=== PATIENT | female | born 1955 | race Caucasian/White ===

== ENCOUNTER → 2019-11-25 08:11 | Outpatient (BNVA) | payer OTHER, SELFPAY | PROVIDERS: Visit Provider Nurse Practitioner Gerontology | DX: Z76.89 Persons encountering health services in other specified circumstances (principal) ==

== ENCOUNTER 2019-12-02 08:05 | Outpatient (REF) | payer OTHER, SELFPAY ==
--- NOTE | 2019-12-02 08:10 | XR_ITS ---
EXAMINATION: KNEE X-RAY CLINICAL INFORMATION: Right tibia fracture COMPARISON: Previous CT of the right knee 10/24/2019 TECHNIQUE: AP view of both knees and lateral and sunrise view of the right knee FINDINGS: Right knee: Bone alignment is normal. There is a increased sclerosis of the lateral tibial plateau suggestive of healing fracture. The joint spaces are normal. There is a joint effusion. Standing AP view of the left knee is unremarkable. XR/XR knee standing BI IMPRESSION: Healing right lateral tibial plateau fracture.
--- NOTE | 2019-12-02 08:10 | XR_ITS ---
EXAMINATION: KNEE X-RAY CLINICAL INFORMATION: Right tibia fracture COMPARISON: Previous CT of the right knee 10/24/2019 TECHNIQUE: AP view of both knees and lateral and sunrise view of the right knee FINDINGS: Right knee: Bone alignment is normal. There is a increased sclerosis of the lateral tibial plateau suggestive of healing fracture. The joint spaces are normal. There is a joint effusion. Standing AP view of the left knee is unremarkable. XR/XR knee RT 2V IMPRESSION: Healing right lateral tibial plateau fracture.
== END 2019-12-02 08:06 | disposition home or self-care (01) ==
LOC: HO.XRAY 08:05
PROVIDERS: Visit Provider Orthopaedic Surgery
DX: S82.141A Displaced bicondylar fracture of right tibia, initial encounter for closed fracture (principal)
CPT/HCPCS: 73560; 73565

== ENCOUNTER 2020-01-13 08:42 | Outpatient (REF) | payer OTHER, SELFPAY ==
--- NOTE | 2020-01-13 08:44 | XR_ITS ---
EXAMINATION: AP BILATERAL KNEE AND RIGHT KNEE 2 VIEWS CLINICAL INFORMATION: Bilateral knee pain. COMPARISON: Bilateral knee and right knee 12/02/2019 TECHNIQUE: AP bilateral knees standing. Right knee 2 views FINDINGS: AP bilateral knee: There is decreased medial compartment joint space in both knees. There is a mild deformity and sclerosis involving right tibial plateau likely old healed fracture. Right knee: Lateral and sunrise views reveal mild peripatellar spurring. No loss of joint space or bony erosive changes. Mild decrease in suprapatellar joint effusion since 10/18/2019.. XR/XR knee standing BI IMPRESSION: Mild deformity right lateral tibial plateau from old healing fracture. No acute fracture or dislocation identified knees. Mild degenerative changes as seen in the medial compartment of both knees.
--- NOTE | 2020-01-13 08:44 | XR_ITS ---
EXAMINATION: AP BILATERAL KNEE AND RIGHT KNEE 2 VIEWS CLINICAL INFORMATION: Bilateral knee pain. COMPARISON: Bilateral knee and right knee 12/02/2019 TECHNIQUE: AP bilateral knees standing. Right knee 2 views FINDINGS: AP bilateral knee: There is decreased medial compartment joint space in both knees. There is a mild deformity and sclerosis involving right tibial plateau likely old healed fracture. Right knee: Lateral and sunrise views reveal mild peripatellar spurring. No loss of joint space or bony erosive changes. Mild decrease in suprapatellar joint effusion since 10/18/2019.. XR/XR knee RT 2V IMPRESSION: Mild deformity right lateral tibial plateau from old healing fracture. No acute fracture or dislocation identified knees. Mild degenerative changes as seen in the medial compartment of both knees.
== END 2020-01-13 08:43 | disposition home or self-care (01) ==
LOC: HO.HOSX 08:42
PROVIDERS: Visit Provider Orthopaedic Surgery
DX: S82.141A Displaced bicondylar fracture of right tibia, initial encounter for closed fracture (principal); M25.569 Pain in unspecified knee
CPT/HCPCS: 73560; 73565

== ENCOUNTER 2020-02-15 07:25 | Outpatient (REF) | payer OTHER, SELFPAY ==
[2020-02-15 08:31] LABS: Alanine Aminotransferase 16 U/L (0-31); Alkaline Phosphatase 92 U/L (39-117); Anion Gap 12 (12-20); Aspartate Amino Transferase 16 U/L (5-31); Bilirubin Total 1.6 mg/dL (0.0-1.0); Blood Urea Nitrogen 20 mg/dL (9-16); Calcium 9.3 mg/dL (8.4-10.2); Carbon Dioxide 32 mmol/L (22-29); Chloride 101 mmol/L (96-108); Cholesterol 156 mg/dL; Estimated Glomerular Filt Rate 51; Glucose Fasting 81 mg/dL (60-99); HDL Cholesterol 71 mg/dL; LDL Cholesterol Calculated 73 mg/dl; Potassium 4.4 mmol/l (3.3-5.1); Sodium 141 mmol/L (135-145); Total Protein 6.7 g/dL (6.5-8.0); Triglycerides 63 mg/dL
[2020-02-15 08:42] LABS: Creatinine Urine 14.34 mg/dL
[2020-02-15 09:04] LABS: Estimated Average Glucose 148 mg/dL; Hemoglobin A1c % 6.8 %
[2020-02-16 03:48] LABS: LDL Cholesterol Direct 68 mg/dL (<100)
== END 2020-02-15 07:26 | disposition home or self-care (01) ==
LOC: HO.LAB 07:25
PROVIDERS: Visit Provider Nurse Practitioner Gerontology
DX: E10.65 Type 1 diabetes mellitus with hyperglycemia (principal)
CPT/HCPCS: 36415; 80053; 80061; 82043; 83036; 83721

== ENCOUNTER → 2020-02-26 10:54 | Outpatient (BNVA) | payer OTHER, SELFPAY | PROVIDERS: Visit Provider Nurse Practitioner Gerontology ==

== ENCOUNTER → 2020-04-06 14:50 | Outpatient (BNVA) | payer OTHER, SELFPAY | PROVIDERS: Visit Provider Nurse Practitioner Gerontology | DX: E10.21 Type 1 diabetes mellitus with diabetic nephropathy (principal); E10.65 Type 1 diabetes mellitus with hyperglycemia; I10 Essential (primary) hypertension; E78.5 Hyperlipidemia, unspecified; E55.9 Vitamin D deficiency, unspecified | CPT/HCPCS: 82947 ==

== ENCOUNTER → 2020-07-15 14:59 | Outpatient (BNVA) | payer OTHER, SELFPAY | PROVIDERS: Visit Provider Nurse Practitioner Gerontology ==

== ENCOUNTER 2020-11-05 06:09 | Outpatient (REF) | payer OTHER, SELFPAY ==
[2020-11-05 08:27] LABS: Estimated Average Glucose 143 mg/dL; Hemoglobin A1c % 6.6 %
== END 2020-11-05 06:10 | disposition home or self-care (01) ==
LOC: HO.LAB 06:09
PROVIDERS: Visit Provider Nurse Practitioner Gerontology
DX: E10.21 Type 1 diabetes mellitus with diabetic nephropathy (principal)
CPT/HCPCS: 36415; 83036

== ENCOUNTER → 2020-11-11 14:27 | Outpatient (BNVA) | payer OTHER, SELFPAY | PROVIDERS: Visit Provider Nurse Practitioner Gerontology | DX: E10.21 Type 1 diabetes mellitus with diabetic nephropathy (principal); E10.65 Type 1 diabetes mellitus with hyperglycemia; E78.5 Hyperlipidemia, unspecified; E55.9 Vitamin D deficiency, unspecified; I10 Essential (primary) hypertension | CPT/HCPCS: 82947 ==

== ENCOUNTER 2021-06-10 06:06 | Outpatient (REF) | payer OTHER, SELFPAY ==
[2021-06-10 07:27] LABS: Alanine Aminotransferase 20 U/L (0-31); Albumin Level 3.8 g/dL (3.5-5.0); Alkaline Phosphatase 74 U/L (39-117); Anion Gap 13 (12-20); Aspartate Amino Transferase 18 U/L (5-31); Bilirubin Total 1.5 mg/dL (0.0-1.0); Blood Urea Nitrogen 27 mg/dL (9-16); Calcium 9.6 mg/dL (8.4-10.2); Carbon Dioxide 26 mmol/L (22-29); Chloride 105 mmol/L (96-108); Cholesterol 138 mg/dL; Estimated Glomerular Filt Rate 42; Glucose Fasting 190 mg/dL (60-99); HDL Cholesterol 56 mg/dL; LDL Cholesterol Calculated 71 mg/dl; Potassium 4.9 mmol/L (3.3-5.1); Sodium 139 mmol/L (135-145); Total Protein 6.7 g/dL (6.5-8.0); Triglycerides 57 mg/dL
[2021-06-10 07:50] LABS: Thyroid Stimulating Hormone 3.79 uIU/mL (0.32-4.0); Vitamin D 25-OH Total 30.8 ng/mL (>30)
[2021-06-10 09:01] LABS: Creatinine Urine 28.11 mg/dL; Microalbum/Creatinine Ratio Ur 1262.8 ug/mg cr
[2021-06-12 02:32] LABS: LDL Cholesterol Direct 63 mg/dL (<100)
== END 2021-06-10 06:07 | disposition home or self-care (01) ==
LOC: HO.LAB 06:06
PROVIDERS: Visit Provider Nurse Practitioner Gerontology
DX: E10.21 Type 1 diabetes mellitus with diabetic nephropathy (principal); E55.9 Vitamin D deficiency, unspecified
CPT/HCPCS: 36415; 80053; 80061; 82043; 82306; 83721; 84443

== ENCOUNTER → 2021-12-08 14:51 | Outpatient (BNVA) | payer OTHER, SELFPAY | PROVIDERS: Visit Provider Internal Medicine Endocrinology, Diabetes & Metabolism | DX: E10.21 Type 1 diabetes mellitus with diabetic nephropathy (principal) | CPT/HCPCS: 82947; 83036 ==

== ENCOUNTER → 2022-03-10 15:19 | Outpatient (BNVA) | payer OTHER, SELFPAY | PROVIDERS: Visit Provider Internal Medicine Endocrinology, Diabetes & Metabolism | DX: E10.21 Type 1 diabetes mellitus with diabetic nephropathy (principal) | CPT/HCPCS: 82947; 83036 ==

== ENCOUNTER → 2022-06-16 15:25 | Outpatient (BNVA) | payer OTHER, SELFPAY | PROVIDERS: Visit Provider Internal Medicine Endocrinology, Diabetes & Metabolism | DX: E10.21 Type 1 diabetes mellitus with diabetic nephropathy (principal); E10.65 Type 1 diabetes mellitus with hyperglycemia; Z96.41 Presence of insulin pump (external) (internal); Z79.4 Long term (current) use of insulin | CPT/HCPCS: 82947; 83036 ==

== ENCOUNTER 2022-09-20 14:48 | Outpatient (AMB) | payer OTHER, SELFPAY ==
--- NOTE | 2022-09-20 15:33 | A.OFFVIS_ITS ---
Intake Intake Visit Reasons: DM Information Technology Audit Manager Required: No Accompanied by: Self / Same As Patient Allergies cephalexin [From KEFLEX] Allergy (Unknown, Verified 03/10/22 15:27) HIVES Penicillins [PENICILLINS] Allergy (Unknown, Verified 03/10/22 15:27) HIVES penicillin of all kinds Allergy (Intermediate, Uncoded 03/10/22 15:27) Hives HPI Comprehensive Diabetes Asmnt Most Recent Diabetes Results: Microalb/Creat Ratio 1262.8 ug/mg cr 06/10/21 Cholesterol 138 mg/dL 06/10/21 HDL Cholesterol 56 mg/dL 06/10/21 Triglycerides 57 mg/dL 06/10/21 Creatinine 1.29 mg/dL (0.5-1.4) 06/10/21 Blood Urea Nitrogen 27 mg/dL (9-16) H 06/10/21 Sodium 139 mmol/L (135-145) 06/10/21 Potassium 4.9 mmol/L (3.3-5.1) 06/10/21 Chloride 105 mmol/L (96-108) 06/10/21 Carbon Dioxide 26 mmol/L (22-29) 06/10/21 Calcium 9.6 mg/dL (8.4-10.2) 06/10/21 AST 18 U/L (5-31) 06/10/21 ALT 20 U/L (0-31) 06/10/21 Total Protein 6.7 g/dL (6.5-8.0) 06/10/21 Albumin 3.8 g/dL (3.5-5.0) 06/10/21 [facility] Medical History Diabetes mellitus type 1, uncontrolled Essential hypertension Fracture of right tibial plateau Hx of cataract Hyperlipidemia LDL goal <100 Type 1 diabetes mellitus with nephropathy Vitamin D deficiency Surgical History Hx of cataract surgery Family History Father Total knee replacement status Mother Diabetes mellitus Social History Household Members: Spouse Alcohol intake: current Patient Tobacco Use Status: Never used Tobacco Current occupational status: employed 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 Patient currently using 670 G insulin pump with Dexcom G7 sensor Patient did not want to download Dexcom clarity estefani because she is switching over to Noah 3 sensors Patient did not give pump to front desk associate for download so unable to review pump data at this visit Patient feels confident when she gets new pump that she can Program settings herself. Copy of patient's current insulin pump settings given Patient contact wellness educator with questions The following topics were reviewed today: -Pump therapy basic concepts: Basal/bolus, insulin to carb ratio, correction factor, insulin on board -Device settings: Bluetooth/mobile connection (if applicable), correct date and time, sound volume -CGM settings(if integrated system): CGM graft views and trend arrows, alerts and alarms, Start new sensor Insulin delivery settings Program insulin to carb ratio, correction factor, target blood glucose, suspend or resume insulin delivery, bolus limit and basal limit settings Instructed patient to only use room temperature insulin, how to load cartridge or fill pod, with insulin. Fill tubing and cannula (if applicable) Inserting infusion set or starting pod Troubleshooting after starting new pod or inserting new insulin set: Occlusion, adhesive tape sensitivity, redness Check BG 2 hours after site change Safety information: Importance of a backup plan, for manual injections, proper prescriptions and emergency supplies ketone strips, and rules for testing for ketones Patient was able to insert insulin set today without difficulty. Patient understands the basic concepts of pump therapy, how to give insulin for meals and snacks, how to troubleshoot for hyper and hypoglycemia. Patient will follow up with CDE as instructed Patient will contact CDE with questions or concerns, patient given IT number to support in any technical issues related to insulin pump Coding Level of Care Code Est Pt Level 1 (19912) Diagnoses Diabetes mellitus type 1, uncontrolled E10.65 Glycemic state: with hyperglycemia
== END 2022-09-20 15:39 | disposition home or self-care (01) ==
PROVIDERS: Visit Provider Registered Nurse Diabetes Educator
DX: E10.65 Type 1 diabetes mellitus with hyperglycemia (principal)
CPT/HCPCS: 99211

== ENCOUNTER → 2022-09-20 14:48 | Outpatient (BNVA) | payer OTHER, SELFPAY | PROVIDERS: Visit Provider Registered Nurse Diabetes Educator ==

== ENCOUNTER → 2023-03-30 14:46 | Outpatient (BNVA) | payer OTHER, SELFPAY | PROVIDERS: Visit Provider Internal Medicine Endocrinology, Diabetes & Metabolism | DX: E10.21 Type 1 diabetes mellitus with diabetic nephropathy (principal); Z96.41 Presence of insulin pump (external) (internal) | CPT/HCPCS: 82947; 83036 ==

== ENCOUNTER 2023-06-26 06:07 | Outpatient (REF) | payer OTHER, SELFPAY ==
[2023-06-26 08:13] LABS: Anion Gap 14 (12-20); Blood Urea Nitrogen 27 mg/dL (9-16); Calcium 9.4 mg/dL (8.4-10.2); Carbon Dioxide 27 mmol/L (22-29); Chloride 105 mmol/L (96-108); Cholesterol 158 mg/dL (<200); Estimated Glomerular Filt Rate 44; Glucose Random 105 mg/dL (60-115); HDL Cholesterol 68 mg/dL (>40); LDL Cholesterol Calculated 79 mg/dL (<100); Potassium 3.9 mmol/L (3.3-5.1); Sodium 142 mmol/L (135-145); Triglycerides 59 mg/dL (<150)
[2023-06-26 08:15] LABS: Creatinine Urine 34.02 mg/dL; Microalbum/Creatinine Ratio Ur 1119.9 ug/mg cr (<30)
== END 2023-06-26 06:08 | disposition home or self-care (01) ==
LOC: HO.LAB 06:07
PROVIDERS: Visit Provider Internal Medicine Endocrinology, Diabetes & Metabolism
DX: E10.21 Type 1 diabetes mellitus with diabetic nephropathy (principal)
CPT/HCPCS: 36415; 80048; 80061; 82043; 82570

== ENCOUNTER 2023-06-29 14:20 | Outpatient (AMB) | payer OTHER, SELFPAY ==
[2023-06-29 14:25] VITALS: BP 188/86; PULSE 81; BMI 27.8
--- NOTE | 2023-06-29 14:25 | MHC.OFFVIS ---
Vital Signs 06/29/23 14:25 Height 5 ft 2 in Weight 152 lb 1.903 oz BMI 27.8 BP 188/86 H Blood Pressure Location Lt brachial Position Sitting Pulse 81 Pulse Source Pulse Oximeter Intake Visit Reasons: DM-confirmed Intake Note: Patient presents today to follow up on D1MT. Last Diabetic Eye exam: 2021 Last Podiatry Visit: Doesn't have one Random Glucose: 168 mg/dl HgA1c: 6.1% Purchasing Administrator Required: No Accompanied by: Self / Same As Patient Allergies cephalexin [From KEFLEX] Allergy (Unknown, Verified 06/29/23 14:32) HIVES Penicillins [PENICILLINS] Allergy (Unknown, Verified 06/29/23 14:32) HIVES penicillin of all kinds Allergy (Intermediate, Uncoded 06/29/23 14:32) Hives HPI Comments Details: Patient is 67 yo female diagnosed with diabetes type 1 diagnosed at age 12 here for continued management of diabetes. . . Patient doesn't uses CGM because feels it is quite uncomfortable. Sometimes boluses after meals. PMH: DM1, HTN, HLD, Vit D deficiency Complications: nephropathy Symptoms: Denies numbness, tingling and cramping in lower extremeties Hypoglycemia: Very infrequently REports symptoms of not thinking well. No shakiness or sweatiness. Hyperglycemia: denies polyuria Exercise: only walks at work and doing errands. Eye exam: needs to make appt Blood sugars: Has Noah- download shows 69% TIR 25% hyperglycemia and 6 % hypoglycemia Do ing fingersticks 2 to 3 times a day and entering into the pump Average blood glucose,169 Total daily dose 36 units Bolus 53% Basal 47% Set change 6.5 days [place] change every 6.5 days Average carbs/day. Modanisa Med 670 G pump SETTINGS :97% manual TDD of 37.3 52 % basal and 48% bolus Basal rates Start time - units/hr 00:00 - 0.750 600 0.975 08:00 - 0.85 11:00 - 0.975 1400 0.6 17:00 - 0.975 1900 0.725 21 0.725 Carb ratio 00:00 11 09:00 11 15:00 11 Sensitivity 00:00 45 09:00 45 15:00 45 target 100-120. 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 Physical Exam Vital Signs: Last Vital Signs Pulse 81 06/29/23 14:25 BP 188/86 H 06/29/23 14:25 BMI result Body Mass Index 27.8 Results AMB Hemoglobin A1c AMB Hemoglobin A1c 6.1 % Last Edit by ABIGAIL Koch on 06/29/23 14:47 Results Reviewed Results Reviewed: Laboratory Last Values Glucose (Clinic) 168 mg/dL (60-115) H 06/29/23 14:34 Hgb A1c (Clinic) 6.1 % (4.0-6.0) H 06/29/23 14:46 Assessment & Plan Assessment & Plan (1) Type 1 diabetes mellitus with nephropathy: Code(s): E10.21 - Type 1 diabetes mellitus with diabetic nephropathy Category: Medical Plan: This 66-year-old white female with a history of type 1 diabetes being treated with a Medtronic pump with excellent glycemic control and known microvascular complications namely CKD and macro albuminuria. She is having significant hypoglycemia occurring in the dot compliance specialist hours and after breakfast and dinner Plan is to lower the basal rate at 00:00 to 0.7 u/hr and at 6 AM to 0.9 u/hr and loosen the insulin: Carbohydrate to 01:12. Patient will make these changes to the pump after the appointment. I offered her a follow-up appointment with the asthma educator but she declined Orders: Orders AMB Hemoglobin A1c Today E10.21 - Type 1 diabetes mellitus with diabetic nephropathy, Z13.9 - Encounter for screening, unspecified Coding Level of Care Code Est Pt Level 4 (11369) Diagnoses Type 1 diabetes mellitus with nephropathy E10.21
[2023-06-29 14:39] LABS: Glucose, Whole Blood 168 mg/dL (60-115)
== END 2023-06-29 15:12 | disposition home or self-care (01) ==
PROVIDERS: Visit Provider Internal Medicine Endocrinology, Diabetes & Metabolism
DX: Z13.9 Encounter for screening, unspecified (principal); E10.21 Type 1 diabetes mellitus with diabetic nephropathy
CPT/HCPCS: 99214

== ENCOUNTER → 2023-06-29 14:20 | Outpatient (BNVA) | payer OTHER, SELFPAY | PROVIDERS: Visit Provider Internal Medicine Endocrinology, Diabetes & Metabolism | DX: E10.21 Type 1 diabetes mellitus with diabetic nephropathy (principal); Z96.41 Presence of insulin pump (external) (internal) | CPT/HCPCS: 82947; 83036 ==

== ENCOUNTER 2023-09-28 14:42 | Outpatient (AMB) | payer MEDICARE, SELFPAY ==
--- NOTE | 2023-09-28 14:51 | A.OFFVIS_ITS ---
Vital Signs 09/28/23 15:00 Height 5 ft 2 in Weight 154 lb 5.177 oz BMI 28.2 BP 150/72 H Blood Pressure Location Rt brachial Position Sitting Pulse 80 Pulse Source Pulse Oximeter Intake Visit Reasons: T1DM Intake Note: Patient present today to follow up on Type 1 Diabetes Mellitus. Last Diabetic Eye exam: Due for exam Last Podiatry Visit: Does not see a Structural Steel Worker Random Glucose: 123 mg/dl HgA1C: 6.8% Before And After School Daycare Worker Required: No Accompanied by: Self / Same As Patient Allergies cephalexin [From KEFLEX] Allergy (Unknown, Verified 09/28/23 15:04) HIVES Penicillins [PENICILLINS] Allergy (Unknown, Verified 09/28/23 15:04) HIVES penicillin of all kinds Allergy (Intermediate, Uncoded 09/28/23 15:04) Hives Medication List - Last Reconciled 09/28/23 by John Her MD blood sugar diagnostic (Contour Next Test Strips) As directed 6 times a day blood-glucose meter (Contour Next Meter) As directed blood-glucose meter (Contour Next One Meter) As directed checks 4 X/day blood-glucose sensor ([employer] Noah 3 Sensor device) USE DIRECTED; CHANGE SENSOR EVERY 14 DAYS cholecalciferol (vitamin D3) 50 mcg PO DAILY glucagon 3 mg/actuation (Baqsimi) 3 mg intranasal ONCE 30 days infusion set for insulin pump (Medtronic Extended Infusion Set 23 ) As directed change every 72 hrs insulin lispro (Humalog U-100 Insulin) 60 units (0.6 mL) subcut DAILY Lipitor (atorvastatin) 80 mg PO DAILY NS losartan 50 mg PO DAILY [Medtronic Extended [place] 3.0 ml (MMT-342) Use one every 7 days] Zetia (ezetimibe) 10 mg PO DAILY NS HPI Comments Details: Patient is 67 yo female diagnosed with diabetes type 1 diagnosed at age 12 here for continued management of diabetes. . . Patient doesn't uses CGM because feels it is quite uncomfortable. Sometimes boluses after meals. PMH: DM1, HTN, HLD, Vit D deficiency Complications: nephropathy Symptoms: Denies numbness, tingling and cramping in lower extremeties Hypoglycemia: Very infrequently REports symptoms of not thinking well. No shakiness or sweatiness. Hyperglycemia: denies polyuria Exercise: only walks at work and doing errands. Eye exam: needs to make appt Blood sugars: Has Noah- download shows 69% TIR 25% hyperglycemia and 6 % hypoglycemia Do ing fingersticks 2 to 3 times a day and entering into the pump Average blood glucose,169 Total daily dose 33 units Bolus 58% Basal 42% Set change 6.5 days [place] change every 6.5 days Average carbs/day. Mini [id number] G pump SETTINGS :97% manual TDD of 37.3 52 % basal and 48% bolus Basal rates Start time - units/hr 00:00 - 0.750 600 0.975 08:00 - 0.85 10 =0.7 11:00 - 0.975 1400 0.6 17:00 - 0.900 1900 0.725 21 0.725 Carb ratio 00:00 12 09:00 12 15:00 12 Sensitivity 00:00 45 09:00 45 15:00 45 target 100-120. active insulin 4 hrs Average glucose is 173 with standard deviation of 62 Noah 3 download shows avg glucose of 144 with GMI of 7 , 77 % in range with 17% hyperglycemia and 3 % hypoglycemia Hypoglycemia: Rare Last optho appointment needs to make appt [facility] Medical History Diabetes mellitus type 1, uncontrolled Essential hypertension Fracture of right tibial plateau Hx of cataract Hyperlipidemia LDL goal <100 Type 1 diabetes mellitus with nephropathy Vitamin D deficiency Surgical History Hx of cataract surgery Family History Father Total knee replacement status Mother Diabetes mellitus Social History Household Members: Spouse Alcohol intake: current Patient Tobacco Use Status: Never used Tobacco Current occupational status: employed 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 Absence of acromegalic features. Neck exam reveals nl size thyroid about 15 gms. No thyroid nodules palpable. No carotid bruits present. Lungs CTA. Heart S1 S2, Reg R/R. No M/R/ G. Skin exam reveals absence of vitiligo or acanthosis nigricans. Abdominal exam reveals Soft NT/ND with NA BS. No organomegaly present. Extrem Other: Visual exam of foot performed. No ulcerations or open lesions. No onchomycosis, no callouses.Pulses 2 + distally. Sensation intact to monofilament exam. Vibratory sensation sensed 10 seconds in right, 10 seconds in left with 128 Hz tuning fork Results AMB Hemoglobin A1c AMB Hemoglobin A1c 6.8 % Last Edit by ABIGAIL Urbina on 09/28/23 15:31 Results Reviewed Results Reviewed: Laboratory Last Values Glucose (Clinic) 123 mg/dL (60-115) H 09/28/23 15:11 Assessment & Plan Assessment & Plan (1) Type 1 diabetes mellitus with nephropathy: Code(s): E10.21 - Type 1 diabetes mellitus with diabetic nephropathy Category: Medical Plan: This 66-year-old white female with a history of type 1 diabetes being treated with a Medtronic pump with excellent glycemic control and known microvascular complications namely CKD and macro albuminuria. Plan is to continue the current management. Patient will follow up with Cris Andrews NP in 3 mos Orders: Orders AMB Hemoglobin A1c Today E10.21 - Type 1 diabetes mellitus with diabetic nephropathy Medications: Refilled blood-glucose sensor (FreeStyle Noah 3 Sensor device) USE DIRECTED; CHANGE SENSOR EVERY 14 DAYS 2 ea 5RF insulin lispro (Humalog U-100 Insulin) 60 units (0.6 mL) subcut DAILY 60 mL 3RF E10.21 - Type 1 diabetes mellitus with diabetic nephropathy Coding Level of Care Code Est Pt Level 4 (76712) Diagnoses Type 1 diabetes mellitus with nephropathy E10.21
[2023-09-28 15:00] VITALS: BP 150/72; PULSE 80; BMI 28.2
[2023-09-28 15:15] LABS: Glucose, Whole Blood 123 mg/dL (60-115)
== END 2023-09-28 15:40 | disposition home or self-care (01) ==
PROVIDERS: Visit Provider Internal Medicine Endocrinology, Diabetes & Metabolism
DX: E10.21 Type 1 diabetes mellitus with diabetic nephropathy (principal)
CPT/HCPCS: 99214

== ENCOUNTER → 2023-09-28 14:42 | Outpatient (BNVA) | payer MEDICARE, SELFPAY | PROVIDERS: Visit Provider Internal Medicine Endocrinology, Diabetes & Metabolism | DX: E10.21 Type 1 diabetes mellitus with diabetic nephropathy (principal); Z96.41 Presence of insulin pump (external) (internal) | CPT/HCPCS: 82947; 83036; 99212 ==

== ENCOUNTER 2023-12-26 13:43 | Outpatient (AMB) | payer MEDICARE, SELFPAY ==
--- NOTE | 2023-12-26 13:51 | MHC.OFFVIS ---
Vital Signs 12/26/23 13:56 Height 5 ft 2 in Weight 152 lb 12.485 oz BMI 27.9 BP 152/78 H Blood Pressure Location Lt brachial Position Sitting Pulse 83 Pulse Source Pulse Oximeter Intake Visit Reasons: f/u Type 1 DM/CONF Intake Note: Patient present today to follow up on Type 1 Diabetes Mellitus. Last Diabetic Eye exam: Due, has issues with transportation. Last Podiatry Visit: Does not see a Pulley Maintainer Random Glucose: 181 mg/dl HgA1C: 6.3% 12/26/23 Lemon Picker Required: No Accompanied by: Self / Same As Patient Allergies cephalexin [From KEFLEX] Allergy (Unknown, Verified 12/26/23 13:58) HIVES Penicillins [PENICILLINS] Allergy (Unknown, Verified 12/26/23 13:58) HIVES penicillin of all kinds Allergy (Intermediate, Uncoded 12/26/23 13:58) Hives Medication List - Last Reconciled 12/26/23 by John Her MD blood sugar diagnostic (Contour Next Test Strips) As directed 6 times a day blood-glucose meter (Contour Next Meter) As directed blood-glucose meter (Contour Next One Meter) As directed checks 4 X/day blood-glucose sensor (FreeStyle Noah 3 Sensor device) USE DIRECTED; CHANGE SENSOR EVERY 14 DAYS cholecalciferol (vitamin D3) 50 mcg PO DAILY glucagon 3 mg/actuation (Baqsimi) 3 mg intranasal ONCE 30 days infusion set for insulin pump (Medtronic Extended Infusion Set 23 ) As directed change every 72 hrs insulin lispro (Humalog U-100 Insulin) 60 units (0.6 mL) subcut DAILY Lipitor (atorvastatin) 80 mg PO DAILY NS losartan 50 mg PO DAILY [Medtronic Extended [place] 3.0 ml (MMT-342) Use one every 7 days] Zetia (ezetimibe) 10 mg PO DAILY NS HPI Comments Details: Patient is 68 yo female diagnosed with diabetes type 1 diagnosed at age 12 here for continued management of diabetes. . . Patient doesn't uses CGM because feels it is quite uncomfortable. Sometimes boluses after meals. PMH: DM1, HTN, HLD, Vit D deficiency Complications: nephropathy Symptoms: Denies numbness, tingling and cramping in lower extremeties Hypoglycemia: Very infrequently REports symptoms of not thinking well. No shakiness or sweatiness. Hyperglycemia: denies polyuria Exercise: only walks at work and doing errands. Eye exam: Needs to make appointment Blood sugars: Noah download shows avg glu of 125 GMI of 6.3 81% in range with 9% hyperglycemia and 9 % hypoglycemia . Having overnight hypoglycemia and some mid-morning . She lowered basal overight on own Total daily dose 33 units Bolus 58% Basal 42% Set change 6.5 days [place] change every 6.5 days Average carbs/day. Mini [id number] G pump SETTINGS :97% manual TDD of 37.3 52 % basal and 48% bolus Basal rates Start time - units/hr 00:00 - 0.700 600 0.95 08:00 - 0.85 10 =0.7 11:00 - 0.85 1400 0.6 17:00 - 0.85 1900 0.700 21 0.725 Carb ratio 00:00 12 09:00 12 15:00 12 Sensitivity 00:00 45 09:00 45 15:00 45 target 100-120. active insulin 4 hrs Average glucose is 173 with standard deviation of 62 Hypoglycemia: Rare Last optho appointment long time ago. 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 Vital Signs: Last Vital Signs Pulse 83 12/26/23 13:56 BP 152/78 H 12/26/23 13:56 BMI result Body Mass Index 27.9 Results AMB Hemoglobin A1c AMB Hemoglobin A1c 6.3 % Last Edit by ABIGAIL Urbina on 12/26/23 14:14 Results Reviewed Results Reviewed: Laboratory Last Values Glucose (Clinic) 181 mg/dL (60-115) H 12/26/23 14:03 Assessment & Plan Assessment & Plan (1) Type 1 diabetes mellitus with nephropathy: Code(s): E10.21 - Type 1 diabetes mellitus with diabetic nephropathy Category: Medical Plan: This 66-year-old white female with a history of type 1 diabetes being treated with a Medtronic pump with excellent glycemic control and known microvascular complications namely CKD and macro albuminuria. Plan is to continue the current pump settings. Patient was advised to bolus prior to the meal. We talked extensively about converting to an iLet pump which would be a closed loop system and much more beneficial to the patient. It also would contain glucagon in the future with less glycemic variability. I offered a follow-up appointment the body cleaner to discuss with the patient declined At this point she does not want to do so because of financial constraints but will think about Patient will follow up with Cris Andrews NP in 3 mos Orders: Orders AMB Hemoglobin A1c Today E10.21 - Type 1 diabetes mellitus with diabetic nephropathy Coding Level of Care Code Est Pt Level 4 (47785) Complex EM visit Add On G2211 Diagnoses Type 1 diabetes mellitus with nephropathy E10.21
[2023-12-26 13:56] VITALS: BP 152/78; PULSE 83; BMI 27.9
[2023-12-26 14:09] LABS: Glucose, Whole Blood 181 mg/dL (60-115)
== END 2023-12-26 15:01 | disposition home or self-care (01) ==
PROVIDERS: Visit Provider Nurse Practitioner Adult Health
DX: E10.21 Type 1 diabetes mellitus with diabetic nephropathy (principal)

== ENCOUNTER → 2023-12-26 13:43 | Outpatient (BNVA) | payer MEDICARE, SELFPAY | PROVIDERS: Visit Provider Nurse Practitioner Adult Health | DX: E10.21 Type 1 diabetes mellitus with diabetic nephropathy (principal) | CPT/HCPCS: 82947; 83036; 99212 ==

== ENCOUNTER 2024-03-26 10:51 | Outpatient (AMB) | payer MEDICARE, SELFPAY ==
--- NOTE | 2024-03-26 07:29 | MHC.OFFVIS ---
Vital Signs 03/26/24 11:04 Height 5 ft 2 in Weight 154 lb 12.232 oz BMI 28.3 BP 164/78 H Blood Pressure Location Lt brachial Position Sitting Pulse 83 Pulse Source Pulse Oximeter Pulse Oximetry (%) 93 Oxygen Delivery Method Room Air Intake Visit Reasons: F/u-T1DM Intake Note: Patient present today for Type 1 Diabetes Mellitus Last Diabetic eye exam: OVer 2 years ago Last Podiatry Visit: Doesn't have one Random Glucose: 165 mg/dl HgA1C: 6.8% Degree Clerk Required: No Accompanied by: Self / Same As Patient Allergies cephalexin [From KEFLEX] Allergy (Unknown, Verified 03/26/24 11:11) HIVES Penicillins [PENICILLINS] Allergy (Unknown, Verified 03/26/24 11:11) HIVES penicillin of all kinds Allergy (Intermediate, Uncoded 03/26/24 11:11) Hives HPI Comments Details: Patient is 68 yo female diagnosed with diabetes type 1 diagnosed at age 12 here for continued management of diabetes. She was last seen 12/26/2023 with an A1c of 6.3%. A1C 03/27/24 6.8%. She is using a sensor carlo 3 not linked to Ixchelsis.. Sometimes boluses after meals. PMH: DM1, HTN, HLD, Vit D deficiency Complications: nephropathy Eye exam: Needs to make appointment No neuropathy: Symptoms: Denies numbness, tingling and cramping in lower extremeties Hypoglycemia: Very infrequently IN the past Reported symptoms of not thinking well when this occurred No shakiness or sweatiness. Hyperglycemia: denies polyuria Has HLD on Zetia and statin. Most recent LDL 79 06/26/2023 Has nephropathy; EGFR 44 06/27 42 microalbumin:381 06/2023 on ARB Exercise: more active around the house When snow is not an issue will be doing yard work Total daily dose of insulin 32.2 bolus amt 14.1 average carbs entered 106 per day Unable to confirm settings in manual mode due to using Volaris Advisorse Mini [id number] G pump SETTINGS: Basal rates Start time - units/hr 00:00 - 0.700 600 0.95 08:00 - 0.85 10 =0.7 11:00 - 0.85 1400 0.6 17:00 - 0.85 1900 0.700 21 0.725 Carb ratio 00:00 12 09:00 12 15:00 12 Sensitivity 00:00 45 09:00 45 15:00 45 target 100-120. 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 Absence of acromegalic features. Neck exam reveals nl size thyroid about 15 gms. No thyroid nodules palpable. No carotid bruits present. Lungs CTA. Heart S1 S2, Reg R/R. No M/R G. Skin exam reveals absence of vitiligo or acanthosis nigricans. No edema Visual exam of foot performed. No ulcerations or open lesions. No inter digit maceration or fissuring. No onychomycosis, no callouses. Sensation intact to monofilament exam. Vibratory sensation is normal with 128 Hz tuning fork. Results AMB Hemoglobin A1c AMB Hemoglobin A1c 6.8 % Last Edit by ABIGAIL Koch on 03/26/24 11:23 Results Reviewed Results Reviewed: Laboratory Last Values Glucose (Clinic) 165 mg/dL (60-115) H 03/26/24 11:13 Assessment & Plan Assessment & Plan (1) Type 1 diabetes mellitus with nephropathy: Code(s): E10.21 - Type 1 diabetes mellitus with diabetic nephropathy Category: Medical Plan: 68-year-old type 1 diabetic was stable chronic kidney disease EGFR 44 with well-controlled diabetes on an insulin pump. Recent A1c 03/26/2024 6.8%. She declines referral to Nephrology against my advice. We discussed implications of CKD. She was advised to prevent FLORIDALMA and to keep herself hydrated and should have a low threshold of seeking medical attention if she develops a diarrheal or vomiting illness as this can lead to FLORIDALMA on top of chronic CKD. She was counseled to continue losartan and to avoid NSAIDs. The patient had an opportunity to ask questions regarding treatment plan. The patient expressed understanding and agreement with the above treatment plan. The patient is aware they should contact our office by phone for worsening glucose readings or for any low blood sugars which may warrant a change in diabetes medication. Compliance is encouraged with medications and any followup testing/consults which may have been ordered. Orders: Orders AMB Hemoglobin A1c Today E10.21 - Type 1 diabetes mellitus with diabetic nephropathy, Z13.9 - Encounter for screening, unspecified Patient Instructions: The patient was counseled to achieve a target A1C of 7% (154 avg). Fasting blood sugars should be 90-130 in the morning and less than 180 two hours after meals. Reviewed the relationship between poor diabetic control and the development of complications. Troubleshooting after starting new pod or inserting new insulin set: Occlusion, adhesive tape sensitivity, redness Check BG 2 hours after site change Safety information: Importance of a backup plan, for manual injections, proper prescriptions and emergency supplies ketone strips, and rules for testing for ketones Check your feet daily looking for any signs of infection, drainage, redness, ulceration and seek medical attention if this occurs. Break in shoes gradually and do not wear open-toed shoes or walk stocking footed or barefooted. Coding Level of Care Code Est Pt Level 4 (31622) Complex EM visit Add On G2211 Diagnoses Type 1 diabetes mellitus with nephropathy E10.21 Time Spent (min) 30 Comment Reviewing labs/provider notes, glucose sensor/pump reports, face to face, chart doc
[2024-03-26 11:04] VITALS: BP 164/78; PULSE 83; O2SAT 93; BMI 28.3
[2024-03-26 11:18] LABS: Glucose, Whole Blood 165 mg/dL (60-115)
--- OUTSIDE RECORDS SUMMARY | 2024-03-26 12:03 | XMS_ITS | Clinical Summary ---
Author Organization [facility] Address [address] [place] [id number] Care Team Providers Care Canary Raiser Name Role Phone Unavailable Primary Care Provider Unavailabl e Allergies Active Allergy Reactions Criticality Noted Date Comments Cephalexin 09/11/2014 Penicillins 09/11/2014 Medications Medication Sig Dispensed Refills Start Date End Date Status Cholecalciferol (VITAMIN D) 2000 UNITS CAPS Take by mouth. 0 Active atorvastatin (LIPITOR) 40 MG tablet Take 1 tablet (40 mg total) by mouth every night at bedtime. 90 tablet 3 09/11/2014 Active B-D ULTRA-FINE 33 LANCETS MISC Check 10 times daily, on insulin pump, risk for hypoglycemia. Dx 250.41 900 each 3 09/11/2014 Active glucagon (GLUCAGON EMERGENCY) 1 MG injection Use in case of emergent hypoglycemia. Inject and call 911. 1 each 11 09/11/2014 Active lisinopril (PRINIVIL,ZESTRIL) 40 MG tablet Take 1 tablet (40 mg total) by mouth daily. 90 tablet 3 09/11/2014 Active ergocalciferol (VITAMIN D) 50375 UNITS capsule Take 1 capsule daily for 3 days, then take one capsule weekly for two months. 6 capsule 1 09/11/2014 Active glucose blood (POORNIMA CONTOUR NEXT TEST) test stripIndications:Type 1 diabetes mellitus, uncontrolled Poornima Contour Next Test Strip. Checking up to 6 times daily, on insulin pump, risk for hypoglycemia. 550 each 0 09/29/2015 Active Insulin Infusion Pump Supplies (PARADIGM RESERVOIR 3ML) MISCIndications:Type 1 diabetes mellitus, uncontrolled Minimed Paradigm Pump [place] 3ml 3 ml 10's [id number]. 3 month supply 150 each 0 09/29/2015 Active Insulin Infusion Pump Supplies MISCIndications:Type 1 diabetes mellitus, uncontrolled Minimed Qkset 9 mm 23 10 [id number]. 3 Month supply. 150 each 0 09/29/2015 Active insulin lispro (HumaLOG) injection 100 units/mLIndications:T ype 1 diabetes mellitus, uncontrolled Use up to 60 units daily in insulin pump. 60 mL 0 09/29/2015 Active Active Problems Problem Noted Date Diagnosed Date Type 1 diabetes mellitus with renal manifestatio ns 09/11/2014 Overview: ICD-10 Activation Nephritis and nephropathy, n ot specified as acute or chronic, with other specified pathological lesion in kidney, in diseases classified elsewhere 09/11/2014 Essential hypertension 09/11/2014 Overview: ICD-10 Activation Pure hypercholesterolemia 09/11/2014 Vitamin D deficiency 09/11/2014 Overview: ICD-10 Activation Social History Tobacco Use Types Packs/Day Years Used Date Smoking Tobacco: Never Assessed Sex and Gender Information Value Date Recorded Sex Assigned at Not on file Gender Identity Not on file Sexual Orientation Not on file Last Filed Vital Signs Vital Sign Reading Time Taken Comments Blood Pressure 140/70 09/11/2014 8:30 AM EDT Pulse 80 09/11/2014 8:30 AM EDT Temperature - - Respiratory Rate - - Oxygen Saturation - - Inhaled Oxygen Concentration - - Weight 68.9 kg (152 lb) 09/11/2014 8:30 AM EDT Height 158.8 cm (5' 2.5 ) 09/11/2014 8:30 AM EDT Body Mass Index 27.36 09/11/2014 8:30 AM EDT Plan of Treatment Health Maintenance Due Date Last Done Comments Hepatitis C Screening 1955 COVID-19 Vaccine (#1) 01/18/1958 Pneumococcal Vaccine (1 of 2 - PCV) 07/20/1963 Depression Screening 1969 Diabetes: Eye Exam (No Retinopathy) 07/20/1975 Diabetes: Foot Exam 07/20/1975 Preventative Health Evaluation 07/20/1975 DTap / Tdap / Td (1 - Tdap) 1976 Colon Cancer Screening (Colonoscopy) 2002 Breast Cancer Screening (Mammogram) 07/20/2007 Shingrix-Zoster Vaccine (1 of 2) 07/20/2007 Hemoglobin A1C Due 03/05/2015 09/02/2014, 0 05/28/2014, 02/07/2014, Additional history exists Diabetes: Microalbumin Test 09/03/2015 07/2 09/2014, 05/28/2014, 10/21/2013 RSV Adult > 60+ Yrs or (1 - Risk 60-74 years 1-dose series) 2017 Fall Risk Assessment 2022 Osteoporosis Screening (DEXA Scan) 2022 Influenza Vaccine (#1) 2023 Hepatitis B Vaccines Aged Out No long er eligible based on patient's age to complete this topic RSV Ped < 20 months Aged Out No longe r eligible based on patient's age to complete this topic
== END 2024-03-26 11:41 | disposition home or self-care (01) ==
PROVIDERS: Visit Provider Nurse Practitioner Adult Health
DX: Z13.9 Encounter for screening, unspecified (principal); E10.21 Type 1 diabetes mellitus with diabetic nephropathy
CPT/HCPCS: 99214; G2211

== ENCOUNTER → 2024-03-26 10:51 | Outpatient (BNVA) | payer MEDICARE, SELFPAY | PROVIDERS: Visit Provider Nurse Practitioner Adult Health | DX: E10.21 Type 1 diabetes mellitus with diabetic nephropathy (principal); I10 Essential (primary) hypertension; E78.5 Hyperlipidemia, unspecified; E55.9 Vitamin D deficiency, unspecified | CPT/HCPCS: 82947; 83036; 99212 ==

== ENCOUNTER 2024-06-20 10:28 | Outpatient (AMB) | payer MEDICARE, SELFPAY ==
--- NOTE | 2024-06-20 10:44 | A.OFFVIS_ITS ---
Vital Signs 06/20/24 10:47 Height 5 ft 2 in Weight 152 lb 1.903 oz BMI 27.8 BP 140/76 H Blood Pressure Location Rt brachial Position Sitting Pulse 80 Pulse Source Pulse Oximeter Pulse Oximetry (%) 97 Oxygen Delivery Method Room Air Intake Visit Reasons: T1DM Intake Note: Patient presents today for a follow-up on Type 1 Diabetes Mellitus, Patient on insulin Pump: Last Diabetic eye exam was on: DUE Last Podiatry exam was on: Patient does not see a Heavy Media Operator Most recent HbA1c: 6.8%, 06/20/2024 Random Glucose- 233 mg/dL, Today [employer] Required: No Accompanied by: Self / Same As Patient Allergies cephalexin [From KEFLEX] Allergy (Unknown, Verified 06/20/24 10:44) HIVES Penicillins [PENICILLINS] Allergy (Unknown, Verified 06/20/24 10:44) HIVES penicillin of all kinds Allergy (Intermediate, Uncoded 06/20/24 10:44) Hives [facility] Medical History Type 1 diabetes mellitus with nephropathy Fracture of right tibial plateau Hx of cataract Vitamin D deficiency Essential hypertension Hyperlipidemia LDL goal <100 Diabetes mellitus type 1, uncontrolled Surgical History Hx of cataract surgery Family History Father Total knee replacement status Mother Diabetes mellitus Social History Household Members: Spouse Alcohol intake: current Patient Tobacco Use Status: Never used Tobacco Current occupational status: employed 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
[2024-06-20 10:47] VITALS: BP 140/76; PULSE 80; O2SAT 97; BMI 27.8
[2024-06-20 11:01] LABS: Glucose, Whole Blood 233 mg/dL (60-115)
--- OUTSIDE RECORDS SUMMARY | 2024-06-20 11:40 | XMS_ITS | Clinical Summary ---
Author Organization [facility] Address [address] [place] [id number] Care Team Providers Care Sales Exec Name Role Phone Unavailable Primary Care Provider [...] tablet 3 09/11/2014 Active ergocalciferol (VITAMIN D) 52364 UNITS capsule Take 1 capsule daily for [...] 1 diabetes mellitus, uncontrolled Minimed Paradigm Pump [place] 3ml 3 ml 10's [id number]. 3 month supply 150 each 0 09/29/2015 Active Insulin Infusion Pump Supplies MISCIndications:Type 1 diabetes mellitus, uncontrolled Minimed Qkset 9 mm 23 10 [id number]. 3 Month supply. 150 each 0 09/29/2015 [...]
== END 2024-06-20 11:34 | disposition home or self-care (01) ==
LOC: HO.ENCR 10:29
PROVIDERS: Visit Provider Nurse Practitioner Adult Health
DX: E10.65 Type 1 diabetes mellitus with hyperglycemia (principal)

== ENCOUNTER → 2024-06-20 10:28 | Outpatient (BNVA) | payer MEDICARE, SELFPAY | PROVIDERS: Visit Provider Nurse Practitioner Adult Health | DX: E10.65 Type 1 diabetes mellitus with hyperglycemia (principal); Z96.41 Presence of insulin pump (external) (internal); Z79.4 Long term (current) use of insulin | CPT/HCPCS: 82947; 83036; 99212 ==

== ENCOUNTER 2024-09-19 09:04 | Outpatient (REF) | payer MEDICARE, SELFPAY ==
--- OUTSIDE RECORDS SUMMARY | 2024-09-19 09:34 | XMS_ITS | Clinical Summary ---
Author Organization [facility] Address [address] [place] [address] Care Team Providers Care Anesthesia Attending Name Role Phone Unavailable Primary Care Provider [...] tablet 3 09/11/2014 Active ergocalciferol (VITAMIN D) 48475 UNITS capsule Take 1 capsule daily for [...] 1 diabetes mellitus, uncontrolled Minimed Paradigm Pump [place] 3ml 3 ml 10's [id number]. 3 month supply 150 each 0 09/29/2015 Active Insulin Infusion Pump Supplies MISCIndications:Type 1 diabetes mellitus, uncontrolled Minimed Qkset 9 mm 23 10 [id number]. 3 Month supply. 150 each 0 09/29/2015 [...] Screening (DEXA Scan) 2022 Influenza Vaccine (#1) 2024 Hepatitis B Vaccines Aged Out No long er eligible based on patient's age to complete this topic RSV Ped < 20 months Aged Out No longe r eligible based on patient's age to complete this topic
[2024-09-19 10:47] LABS: Anion Gap 8 (12-20); Blood Urea Nitrogen 21 mg/dL (9-16); Calcium 9.4 mg/dL (8.4-10.2); Carbon Dioxide 29 mmol/L (22-29); Chloride 106 mmol/L (96-108); Cholesterol 138 mg/dL (<200); Estimated Glomerular Filt Rate 42; HDL Cholesterol 57 mg/dL (>40); Potassium 4.3 mmol/L (3.3-5.1); Sodium 139 mmol/L (135-145); Triglycerides 77 mg/dL (<150)
[2024-09-19 11:02] LABS: Microalbum/Creatinine Ratio Ur 908.7 ug/mg cr (<30)
== END 2024-09-19 09:05 | disposition home or self-care (01) ==
LOC: HO.LAB 09:04
PROVIDERS: Visit Provider Internal Medicine Endocrinology, Diabetes & Metabolism
DX: N18.9 Chronic kidney disease, unspecified (principal)
CPT/HCPCS: 36415; 80048; 80061; 82043; 82570; 83721

== ENCOUNTER 2024-09-23 10:46 | Outpatient (AMB) | payer MEDICARE, SELFPAY ==
--- NOTE | 2024-09-23 11:01 | A.OFFVIS_ITS ---
Vital Signs 09/23/24 11:06 Height 5 ft 2 in Weight 152 lb 12.485 oz BMI 27.9 BP 156/70 H Blood Pressure Location Rt brachial Position Sitting Pulse 70 Pulse Source Pulse Oximeter Pulse Oximetry (%) 97 Oxygen Delivery Method Room Air Intake Visit Reasons: T1DM Intake Note: Patient present today to follow up on Type 1 Diabetes Mellitus. Last seen by Cris Perry on 06/20/24. Patient receives Noah 3 supplies through: [facility] supply Last Diabetic Eye exam: Over 1 year Last Podiatry Visit: Does not see a Drafting Technician Random Glucose: 134 mg/dl HgA1C: 6.9% 09/23/2024 Size Maker Required: No Accompanied by: Self / Same As Patient Allergies cephalexin (From KEFLEX) Allergy (Unknown, Verified 09/23/24 11:06) HIVES Penicillins (PENICILLINS) Allergy (Unknown, Verified 09/23/24 11:06) HIVES penicillin of all kinds Allergy (Intermediate, Uncoded 09/23/24 11:06) Hives Medication List - Last Reconciled 09/23/24 by John Her MD blood sugar diagnostic (Contour Next Test Strips) As directed 6 times a day blood-glucose meter (Contour Next Meter) As directed blood-glucose meter (Contour Next One Meter) As directed checks 4 X/day blood-glucose sensor (LocalCirclesyle Noah 3 Sensor device) USE DIRECTED; CHANGE SENSOR EVERY 14 DAYS cholecalciferol (vitamin D3) 50 mcg PO DAILY glucagon 3 mg/actuation (Baqsimi) 3 mg intranasal ONCE 30 days infusion set for insulin pump (Medtronic Extended Infusion Set 23 ) As directed change every 72 hrs insulin lispro (Humalog U-100 Insulin) 60 units (0.6 mL) subcut DAILY Lipitor (atorvastatin) 80 mg PO DAILY NS losartan 50 mg PO DAILY [Medtronic Extended [place] 3.0 ml (MMT-342) Use one every 7 days] Zetia (ezetimibe) 10 mg PO DAILY NS HPI Comments Details: Patient is 69 yo female diagnosed with diabetes type 1 diagnosed at age 12 here for continued management of diabetes. Hemoglobin A1c in the office today is 6.8% She was last seen 03/26/24 with an . A1C 03/27/24 6.8%. She is using a sensor noah 3 not linked to medtronic.. Sometimes boluses after meals. PMH: DM1, HTN, HLD, Vit D deficiency Complications: nephropathy Eye exam: Needs to make appt No neuropathy: Symptoms: Denies numbness, tingling and cramping in lower extremeties Hypoglycemia: Very infrequently none on this report In the past Reported symptoms of not thinking well when this occurred No shakiness or sweatiness. Hyperglycemia: denies polyuria Has HLD on Zetia and statin. Most recent LDL 79 06/26/2023 Has nephropathy; EGFR 44 06/27 42 microalbumin:381 06/2023 on ARB Exercise: more active around the house When snow is not an issue will be doing yard work Total daily dose of insulin 32.1 Basal 18 Units bolus 14 Mini [id number] G pump SETTINGS: Basal rates Start time - units/hr She is an active and a basal 1 See scanned pump download Basal rates Start time - units/hr 00:00 - 0.600= 0.675 600 0.95 08:00 - 0.85 11:00 - 0.975 1400 0.6 17:00 - 0.975 1900 0.725 21 0.675 Carb ratio 00:00 12 09:00 12 15:00 12 Sensitivity 00:00 45 09:00 45 15:00 45 target 100-120. active insulin 4 hrs Hypoglycemia: Rare Noah data on her phone reveals average glucose to be 132 . GMI of 6.9 91 % in range 9% hyperglycemia 0% hypoglycemia [facility] Medical History (Updated 07/04/24 @ 15:12 by Cris Perry NP) Chronic kidney disease Type 1 diabetes mellitus with nephropathy Fracture of right tibial plateau Hx of cataract Vitamin D deficiency Essential hypertension Hyperlipidemia LDL goal <100 Diabetes mellitus type 1, uncontrolled Surgical History Hx of cataract surgery Family History Father Total knee replacement status Mother Diabetes mellitus Social History Household Members: Spouse Alcohol intake: current Patient Tobacco Use Status: Never used Tobacco Current occupational status: employed 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 Absence of acromegalic features. Neck exam reveals nl size thyroid about 15 gms. No thyroid nodules palpable. Heart S1 S2, Reg R/R. No M/R G. Skin exam reveals absence of vitiligo or acanthosis nigricans. No edema Visual exam of foot performed. No ulcerations or open lesions. No inter digit maceration or fissuring. No onychomycosis, no callouses. Sensation intact to monofilament exam. Vibratory sensation is normal with 128 Hz tuning fork. Pulses positive distally Results AMB Hemoglobin A1c AMB Hemoglobin A1c 6.9 % Last Edit by ABIGAIL Urbina on 09/23/24 11:25 Results Reviewed Results Reviewed: Laboratory Last Values Glucose (Clinic) 134 mg/dL (60-115) H 09/23/24 11:15 Hgb A1c (Clinic) 6.9 % (4.0-6.0) H 09/23/24 11:19 Assessment & Plan Assessment & Plan (1) Type 1 diabetes mellitus with nephropathy: Code(s): E10.21 - Type 1 diabetes mellitus with diabetic nephropathy Category: Medical Plan: This 66-year-old white female with a history of type 1 diabetes being treated with a Medtronic pump with excellent glycemic control and known microvascular complications namely CKD and macro albuminuria. Plan is to continue the current management. Patient will follow up P in 3 mos Orders: Orders AMB Hemoglobin A1c Today E10.65 - Type 1 diabetes mellitus with hyperglycemia Medications: Refilled Lipitor (atorvastatin) MICHAEL - no substitions 80 mg PO DAILY 90 tabs 3RF NS E78.5 - Hyperlipidemia, unspecified losartan 50 mg PO DAILY 90 tabs 3RF I10 - Essential (primary) hypertension Coding Level of Care Code Est Pt Level 4 (53910) Complex EM visit Add On G2211 Diagnoses Type 1 diabetes mellitus with nephropathy E10.21
[2024-09-23 11:06] VITALS: BP 156/70; PULSE 70; O2SAT 97; BMI 27.9
[2024-09-23 11:21] LABS: Glucose, Whole Blood 134 mg/dL (60-115)
--- OUTSIDE RECORDS SUMMARY | 2024-09-23 11:46 | XMS_ITS | Clinical Summary ---
Author Organization [facility] Address [address] [place] [address] Care Team Providers Care Insole And Heel Stiffener Name Role Phone Unavailable Primary Care Provider [...] tablet 3 09/11/2014 Active ergocalciferol (VITAMIN D) 78702 UNITS capsule Take 1 capsule daily for [...] 1 diabetes mellitus, uncontrolled Minimed Paradigm Pump [place] 3ml 3 ml 10's [id number]. 3 month supply 150 each 0 09/29/2015 Active Insulin Infusion Pump Supplies MISCIndications:Type 1 diabetes mellitus, uncontrolled Minimed Qkset 9 mm 23 10 [id number]. 3 Month supply. 150 each 0 09/29/2015 [...]
== END 2024-09-23 11:38 | disposition home or self-care (01) ==
LOC: HO.ENCR 10:46
PROVIDERS: Visit Provider Internal Medicine Endocrinology, Diabetes & Metabolism
DX: E10.21 Type 1 diabetes mellitus with diabetic nephropathy (principal); E10.65 Type 1 diabetes mellitus with hyperglycemia
CPT/HCPCS: 99214; G2211

== ENCOUNTER → 2024-09-23 10:46 | Outpatient (BNVA) | payer MEDICARE, SELFPAY | PROVIDERS: Visit Provider Internal Medicine Endocrinology, Diabetes & Metabolism | DX: E10.21 Type 1 diabetes mellitus with diabetic nephropathy (principal); Z79.4 Long term (current) use of insulin; Z96.41 Presence of insulin pump (external) (internal) | CPT/HCPCS: 82947; 83036; 99212 ==

== ENCOUNTER 2024-10-02 08:43 | Outpatient (REF) | payer MEDICARE, SELFPAY ==
--- OUTSIDE RECORDS SUMMARY | 2024-10-02 09:07 | XMS_ITS | Clinical Summary ---
Author Organization [facility] Address [address] [place] [address] Care Team Providers Care Supervisor Shipping Room Name Role Phone Unavailable Primary Care Provider [...] tablet 3 09/11/2014 Active ergocalciferol (VITAMIN D) 40493 UNITS capsule Take 1 capsule daily for [...] 1 diabetes mellitus, uncontrolled Minimed Paradigm Pump [place] 3ml 3 ml 10's [id number]. 3 month supply 150 each 0 09/29/2015 Active Insulin Infusion Pump Supplies MISCIndications:Type 1 diabetes mellitus, uncontrolled Minimed Qkset 9 mm 23 10 [id number]. 3 Month supply. 150 each 0 09/29/2015 [...]
== END 2024-10-02 08:44 | disposition home or self-care (01) ==
LOC: HO.WFDLDS 08:43
PROVIDERS: Visit Provider Internal Medicine Endocrinology, Diabetes & Metabolism
DX: E10.21 Type 1 diabetes mellitus with diabetic nephropathy (principal); E10.22 Type 1 diabetes mellitus with diabetic chronic kidney disease; N18.9 Chronic kidney disease, unspecified
CPT/HCPCS: 36415; 82570; 84681

== ENCOUNTER 2024-12-23 11:04 | Outpatient (AMB) | payer MEDICARE, SELFPAY ==
[2024-12-23 11:10] VITALS: BP 154/82; PULSE 87; O2SAT 97; BMI 27.8
--- NOTE | 2024-12-23 11:10 | MHC.OFFVIS ---
Vital Signs 12/23/24 11:10 Height 5 ft 2 in Weight 152 lb 1.903 oz BMI 27.8 BP 154/82 H Blood Pressure Location Lt brachial Position Sitting Pulse 87 Pulse Source Pulse Oximeter Pulse Oximetry (%) 97 Oxygen Delivery Method Room Air Intake Visit Reasons: f/u Type 1 DM Intake Note: Patient present today to follow up on Type 1 Diabetes Mellitus. Patient receives Noah 3 supplies through: [employer] supply Last Diabetic Eye exam: Over 1 year Last Podiatry Visit: Does not see a Loss Prevention And Safety Manager Random Glucose: 256 mg/dl HgA1C: 6.1% 12/23/2024 Liaison Engineer Required: No Accompanied by: Self / Same As Patient Allergies cephalexin (From KEFLEX) Allergy (Unknown, Verified 12/23/24 11:10) HIVES Penicillins (PENICILLINS) Allergy (Unknown, Verified 12/23/24 11:10) HIVES penicillin of all kinds Allergy (Intermediate, Uncoded 12/23/24 11:10) Hives Medication List - Last Reconciled 12/23/24 by John Her MD atorvastatin (Lipitor) 80 mg PO DAILY blood sugar diagnostic (Contour Next Test Strips) As directed 6 times a day blood-glucose meter (Contour Next Meter) As directed blood-glucose meter (Contour Next One Meter) As directed checks 4 X/day blood-glucose sensor (FreeCasabuyle Noah 3 Sensor device) USE DIRECTED; CHANGE SENSOR EVERY 14 DAYS cholecalciferol (vitamin D3) 50 mcg PO DAILY glucagon 3 mg/actuation (Baqsimi) 3 mg intranasal ONCE 30 days infusion set for insulin pump (Medtronic Extended Infusion Set 23 ) As directed change every 72 hrs insulin lispro (Humalog U-100 Insulin) 60 units (0.6 mL) subcut DAILY losartan 50 mg PO DAILY [Medtronic Extended [place] 3.0 ml (MMT-342) Use one every 7 days] Zetia (ezetimibe) 10 mg PO DAILY NS HPI Comments Details: Patient is 69 yo female diagnosed with diabetes type 1 diagnosed at age 12 here for continued management of diabetes. . Sometimes boluses after meals. PMH: DM1, HTN, HLD, Vit D deficiency Complications: nephropathy Eye exam: Needs to make appt No neuropathy: Symptoms: Denies numbness, tingling and cramping in lower extremeties Hypoglycemia: Very infrequently none on this report In the past Reported symptoms of not thinking well when this occurred No shakiness or sweatiness. Hyperglycemia: denies polyuria Has HLD on Zetia and statin. Most recent LDL 79 06/26/2023 Has nephropathy; EGFR 44 06/27 42 microalbumin:381 06/2023 on [facility] Exercise: more active around the house When snow is not an issue will be doing yard work Total daily dose of insulin 32.1 Basal 18 Units bolus 14 Mini [id number] pump SETTINGS: Basal rates Start time - units/hr She is an active and a basal 1 See scanned pump download Basal rates Start time - units/hr 00:00 - 0.600= 0.675 600 0.95 08:00 - 0.85 11:00 - 0.975 1400 0.6 17:00 - 0.975 1900 0.725 21 0.675 Carb ratio 00:00 12 09:00 12 15:00 12 Sensitivity 00:00 45 09:00 45 15:00 45 target 100-120. active insulin 4 hrs Hypoglycemia: Rare Noah data on her phone reveals average glucose to be 147 . GMI of 6.9 76 % in range 17% hyperglycemia 7% hypoglycemia. Pattern shows overnight hypoglycemia and mid-afternoon hypoglycemia [facility] [place] Medical History (Updated 07/04/24 @ 15:12 by Cris Perry NP) Chronic kidney disease Type 1 diabetes mellitus with nephropathy Fracture of right tibial plateau Hx of cataract Vitamin D deficiency Essential hypertension Hyperlipidemia LDL goal <100 Diabetes mellitus type 1, uncontrolled Surgical History Hx of cataract surgery Family History Father Total knee replacement status Mother Diabetes mellitus Social History Household Members: Spouse Alcohol intake: current Patient Tobacco Use Status: Never used Tobacco Current occupational status: employed 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 Absence of acromegalic features. Neck exam reveals nl size thyroid about 15 gms. No thyroid nodules palpable. Heart S1 S2, Reg R/R. No M/R G. Skin exam reveals absence of vitiligo or acanthosis nigricans. No edema Visual exam of foot performed. No ulcerations or open lesions. No inter digit maceration or fissuring. No onychomycosis, no callouses. Sensation intact to monofilament exam. Vibratory sensation is normal with 128 Hz tuning fork. Pulses positive distally Results AMB Hemoglobin A1c AMB Hemoglobin A1c 6.1 % Last Edit by ABIGAIL Urbina on 12/23/24 11:30 Results Reviewed Results Reviewed: Laboratory Last Values Glucose (Clinic) 256 mg/dL (60-115) H 12/23/24 11:16 Hgb A1c (Clinic) 6.1 % (4.0-6.0) H 12/23/24 11:21 Assessment & Plan Assessment & Plan (1) Type 1 diabetes mellitus with nephropathy: Code(s): E10.21 - Type 1 diabetes mellitus with diabetic nephropathy Category: Medical Plan: This 66-year-old white female with a history of type 1 diabetes being treated with a Medtronic pump with excellent glycemic control and known microvascular complications namely CKD and macro albuminuria. Plan is to decrease the basal at 12 MN to 0.6 . Will have pt meet with CDE to try to integrate pump with sensor possibly Simplera or Noah when available. Patient will follow up in 3 mos Orders: Orders AMB Hemoglobin A1c Today E10.65 - Type 1 diabetes mellitus with hyperglycemia Coding Level of Care Code Est Pt Level 4 (51953) Complex EM visit Add On G2211 Diagnoses Type 1 diabetes mellitus with nephropathy E10.21
[2024-12-23 11:22] LABS: Glucose, Whole Blood 256 mg/dL (60-115)
== END 2024-12-23 11:51 | disposition home or self-care (01) ==
LOC: HO.ENCR 11:05
PROVIDERS: Visit Provider Internal Medicine Endocrinology, Diabetes & Metabolism
DX: E10.21 Type 1 diabetes mellitus with diabetic nephropathy (principal); E10.65 Type 1 diabetes mellitus with hyperglycemia
CPT/HCPCS: 99214; G2211

== ENCOUNTER → 2024-12-23 11:04 | Outpatient (BNVA) | payer MEDICARE, SELFPAY | PROVIDERS: Visit Provider Internal Medicine Endocrinology, Diabetes & Metabolism | DX: E10.21 Type 1 diabetes mellitus with diabetic nephropathy (principal); E10.65 Type 1 diabetes mellitus with hyperglycemia; Z96.41 Presence of insulin pump (external) (internal) | CPT/HCPCS: 82947; 83036; 99212 ==